=== PATIENT | female | born 1965 ===

== ENCOUNTER → 2018-06-13 21:20 | Outpatient (REF) | payer OTHER, SELFPAY ==
[2018-06-13 22:13] LABS: Add Manual Diff / Slide Review NO; Basophils Percent Auto 0.4 % (0-2); Eosinophils Percent Auto 1.8 % (2-4); Hematocrit 39.3 % (36-46); Hemoglobin 13.5 g/dL (12.0-16.0); Lymphocytes Percent Auto 45.7 % (25-40); Mean Corpuscular HGB Conc 34.5 % (30-36); Mean Corpuscular Hemoglobin 32.5 PG (26-34); Mean Corpuscular Volume 94.2 fL (80-100); Monocytes Percent Auto 6.3 % (3-14); Neutrophils Absolute Auto 2200 /uL (1500-7000); Neutrophils Percent Auto 45.8 % (50-75); Platelet Count 267 X10^3/uL (150-400); Red Blood Cell Count 4.17 X10^6/uL (4.0-5.2); Red Cell Distribution Width 13.4 % (11.6-14.8); White Blood Cell Count 4.8 X10^3/uL (4.5-11.0)
[2018-06-14 02:48] LABS: Cholesterol 239 mg/dL (140-199); HDL Cholesterol 73 mg/dL (40-60); LDL Cholesterol Calculated 149 mg/dL (<100); Triglycerides 85 mg/dL (35-150)
[2018-06-14 02:49] LABS: C-Reactive Protein Quant < 0.5 mg/dL (<1.0)
[2018-06-15 16:33] LABS: Estradiol 16 pg/mL
[2018-06-15 16:56] LABS: Progesterone 4.3 ng/mL
[2018-06-18 10:53] LABS: Testosterone Free 1.2 pg/mL (0.1-6.4); Testosterone Total 13 ng/dL (2-45)
== END ==
LOC: LAB 21:20
PROVIDERS: Visit Provider Family Medicine
DX: R53.83 Other fatigue (principal); R63.5 Abnormal weight gain; Z79.899 Other long term (current) drug therapy; E78.00 Pure hypercholesterolemia, unspecified
CPT/HCPCS: 36415; 80061; 82670; 84144; 84402; 84403; 85025; 86140

== ENCOUNTER → 2018-08-30 23:03 | Outpatient (REF) | payer OTHER, SELFPAY ==
[2018-08-31 05:03] LABS: Cholesterol 234 mg/dL (140-199); HDL Cholesterol 72 mg/dL (40-60); LDL Cholesterol Calculated 143 mg/dL (<100); Triglycerides 94 mg/dL (35-150)
[2018-09-04 14:16] LABS: Progesterone 5.5 ng/mL
[2018-09-06 14:44] LABS: Estrone,Serum 42
== END ==
LOC: LAB 23:03
PROVIDERS: Visit Provider Family Medicine
DX: E78.00 Pure hypercholesterolemia, unspecified (principal); Z79.890 Hormone replacement therapy; N92.6 Irregular menstruation, unspecified
CPT/HCPCS: 36415; 80061; 83001; 83002; 84144